=== PATIENT | female | born 1965 | race Caucasian/White ===

== ENCOUNTER 2018-02-27 13:29 | Emergency (ER) | payer MEDICAID ==
[2018-02-27] MEDS: HYDROCODONE/APAP (5/325) TAB PO (15:06)
== END 2018-02-27 15:59 | disposition home or self-care (01) ==
LOC: FTE 13:29
DX: M25.561 Pain in right knee (principal); M25.562 Pain in left knee
CPT/HCPCS: 73562; 73562-50; 81025; 99284-25